=== PATIENT | male | born 1950 | race Caucasian/White ===

== ENCOUNTER 2024-08-27 06:52 | Day surgery (SDC) | payer OTHER ==
[2024-08-12 16:23] VITALS: BMI 30.9
[2024-08-27 10:34] VITALS: TEMP 97.6
[2024-08-27 10:35] VITALS: RESP 18
[2024-08-27 13:20] VITALS: BP 121/70; PULSE 71
== END 2024-08-27 12:10 | disposition home or self-care (01) ==
LOC: JASU-ENDO 06:52
PROVIDERS: ATTEND Internal Medicine Gastroenterology
PROC: 0DBP8ZX Excision of Rectum, Via Natural or Artificial Opening Endoscopic, Diagnostic (ICD-10-PCS; principal; 2024-08-27 10:00)
DX: Z12.11 Encounter for screening for malignant neoplasm of colon (principal); D12.8 Benign neoplasm of rectum; K64.8 Other hemorrhoids; K57.30 Diverticulosis of large intestine without perforation or abscess without bleeding
CPT/HCPCS: 82962; 88305-TC